=== PATIENT | female | born 1960 | race Two or more races ===

== ENCOUNTER 2019-02-16 22:26 | Emergency (ER) | payer MEDICAID ==
[~2019-02-16] VITALS: Ht 160 cm; Wt 77.6 kg
[2019-02-16 22:40] VITALS: BP 134/88
--- NOTE | 2019-02-16 22:40 | NUR ---
ED Nurse Note: Patient walked in to ER due to right foot pain since today. Denies any recent injuries/fall. Pt able to move lower extremities without difficulty. No SOB. Afebrile. VSS. Sister at bedside.
--- NOTE | 2019-02-16 22:44 | NUR ---
ED Nurse Note: Xray at bedside.
--- NOTE | 2019-02-16 22:46 | Emergency Room Report ---
History of Present Illness General Chief Complaint: Pain Source: Patient Present Illness HPI This is a 58-year-old female with no past medical history. She presents with chief complaint right foot pain. Onset this morning. Hurts to walk. Better with rest. Pain is to the arch of her foot. No trauma. No fever chills but no redness. Pain is 6 out of 10. Allergies: Coded Allergies: No Known Allergies (Unverified , 02/16/19) Patient History Past Medical History: see triage record, old chart reviewed Past Surgical History: none Pertinent Family History: none Social History: Denies: smoking Now: No Immunizations: other Reviewed Nursing Documentation: PMH: Agreed; PSxH: Agreed Nursing Documentation-PMH Past Medical History: No Stated History Review of Systems Eye: Denies: eye pain, blurred vision ENT: Denies: ear pain, nose congestion, throat swelling Respiratory: Denies: cough, shortness of breath Cardiovascular: Denies: chest pain, palpitations Gastrointestinal: Denies: abdominal pain, diarrhea, nausea, vomiting Musculoskeletal: Reports: joint pain; Denies: back pain Skin: Denies: rash Neurological: Denies: headache, numbness Endocrine: Denies: increased thirst, increased urine Hematologic/Lymphatic: Denies: easy bruising All Other Systems: negative except mentioned in HPI Physical Exam Vital Signs Date Time Temp Pulse Resp B/P (MAP) Pulse Ox O2 Delivery O2 Flow Rate FiO2 02/16/19 22:37 98.6 64 18 134/88 (103) 98 Room Air Vitals unremarkable Sp02 EP Interpretation: reviewed, normal General Appearance: well appearing, no apparent distress, alert Head: normocephalic, atraumatic Eyes: bilateral eye PERRL, bilateral eye EOMI ENT: hearing grossly normal, normal pharynx Neck: full range of motion, supple, no meningismus Respiratory: chest non-tender, lungs clear, normal breath sounds Cardiovascular #1: regular rate, rhythm, no murmur Gastrointestinal: normal bowel sounds, non tender, no mass, no organomegaly, no bruit, non-distended Musculoskeletal: back normal, gait/station normal, normal range of motion, other - Right foot: No tenderness to the arch. No redness or deformity. Normal pulse. Psychiatric: mood/affect normal Medical Decision Making Diagnostic Impression: Primary Impression: Plantar fasciitis of right foot ER Course Patient presents with pain to the sole of her right foot. This most likely a plantar fasciitis arthritic pain. No evidence of any fracture dislocation. No evidence of any infection. Will discharge home. Other X-Ray Diagnostic Results Other X-Ray Diagnostic Results : X-Ray ordered: Foot x-rays right # of Views/Limited Vs Complete: 3 View Indication: Pain EP Interpretation: Yes Interpretation: no dislocation, no soft tissue swelling, no fractures Impression: No acute disease Electronically Signed by: Philippe Singletary MD Last Vital Signs Date Time Temp Pulse Resp B/P (MAP) Pulse Ox O2 Delivery O2 Flow Rate FiO2 02/16/19 22:40 98.6 80 18 134/88 98 Room Air Status: improved Disposition: HOME, SELF-CARE Condition: Stable Scripts Ibuprofen* (MOTRIN*) 600 Mg Tablet 600 MG ORAL THREE TIMES A DAY, #30 TAB 0 Refills Prov: Philippe Singletary MD 02/16/19 Additional Instructions: Follow-up with your doctor in 7 days. Return if symptoms worsen. Philippe Singletary MD Feb 16, 2019 22:46
[2019-02-16] MEDS ORDERED: IBUPROFEN600 MG ORAL (22:53)
[2019-02-16 23:00] VITALS: BP 134/88
--- NOTE | 2019-02-16 23:00 | NUR ---
ED Nurse Note: Pt cleared by ERMD for discharge. DC instructions/prescription was given and explained to pt and verbalized understanding of teachings. All medical deviecs such as ID band removed. Pt is AAO x4, ambulatory and left with all personal belongings. Accompanied by sister.
--- NOTE | 2019-02-17 14:44 | Diagnostic Imaging Report ---
Indication: Right foot pain Technique: 3 views right foot Comparison: none Findings: And mild periosteal thickening is seen along the shafts of the second third and fourth metatarsals. There is hammertoe deformity of the second through fifth digits. No acute fractures. No dislocations. The joint spaces are preserved. There is a sizable calcaneal spur Impression: No acute bony trauma Deformities as described Periosteal thickening of the metatarsals, of doubtful significance but could indicate old stress fractures
== END 2019-02-16 23:05 | disposition home or self-care (01) ==
LOC: EMR 22:50
DX: M72.2 Plantar fascial fibromatosis (principal)
CPT/HCPCS: 73630; Z7502; 99283